=== PATIENT | male | born 1940 | race Caucasian/White ===

== ENCOUNTER → 2018-02-21 | Outpatient (CLI) | payer OTHER, MEDICAID | LOC: BHCLAF 14:45 | PROVIDERS: ATTEND Internal Medicine Cardiovascular Disease | DX: R06.02 Shortness of breath (principal); R60.9 Edema, unspecified | CPT/HCPCS: 93306-PO ==

== ENCOUNTER → 2018-06-12 | Outpatient (CLI) | payer OTHER, MEDICAID | LOC: SBRMNEURO 21:00 | PROVIDERS: ATTEND Internal Medicine Sleep Medicine | DX: G47.33 Obstructive sleep apnea (adult) (pediatric) (principal); G47.61 Periodic limb movement disorder ==

== ENCOUNTER → 2018-07-04 | Outpatient (CLI) | payer OTHER, MEDICAID | LOC: CIMAGING 11:33 | PROVIDERS: ATTEND Internal Medicine | DX: J40 Bronchitis, not specified as acute or chronic (principal) | CPT/HCPCS: 71046-PO ==

== ENCOUNTER → 2018-09-28 | Outpatient (CLI) | payer OTHER, MEDICAID | LOC: CIMAGING 12:42 | PROVIDERS: ATTEND Internal Medicine | DX: J40 Bronchitis, not specified as acute or chronic (principal) | CPT/HCPCS: 71046-PO ==